=== PATIENT | female | born 2005 | race Hispanic/Latino ===

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

== ENCOUNTER 2023-07-27 08:33 | Emergency (ER) | payer MEDICAID, OTHER ==
[2023-07-27] MEDS ORDERED: Ibuprofen 200 MG TAB ONE (08:58)
== END 2023-07-27 09:48 | disposition home or self-care (01) ==
LOC: CSHERS 08:33
DX: M79.661 Pain in right lower leg (principal)